=== PATIENT | male | born 1940 | race Caucasian/White ===

== ENCOUNTER 2017-01-28 06:28 | Day surgery (SDC) | payer MEDICARE, BC ==
[~2017-01-28 06:28] MED LIST: Metoclopramide 10 MG/2 ML SDV IV PRN; Sodium Chloride 0.9% 1,000 ML IV SCH; Sodium Chloride 0.9% 10 ML Syringe FLUSH PRN
[2017-01-28] MEDS ORDERED: Propofol 200 MG/20 ML SDV ONE ×2 (09:50)
--- NOTE | 2017-01-28 11:55 | OR ---
DATE OF OPERATION: 01/28/2017 PREOPERATIVE DIAGNOSIS: Colorectal cancer screening due. POSTOPERATIVE DIAGNOSIS: Severe pancolonic diverticulosis with tortuous nevus of the sigmoid colon. PROCEDURE: Colonoscopy. SURGEON: Anitha Gay DO ANESTHESIA: General per Natan Hahn CRNA. ESTIMATED BLOOD LOSS: Less than 10 mL. DESCRIPTION OF PROCEDURE: After informed consent was obtained, the patient was taken to the endoscopy suite, and placed in the left lateral decubitus position with all pressure points, bony prominences, and neurovascular bundles padded appropriately with no undue tension. The Department of Anesthesia initiated cardiopulmonary monitoring and performed sedation. A digital rectal exam was performed which was within normal limits. Then, a well lubricated Olympus colonoscope was inserted into the anus and advanced through the rectum, sigmoid colon, descending colon, splenic flexure, transverse colon, hepatic flexure, ascending colon, and cecum. The prep was excellent allowing for complete visualization of all mucosal surfaces. The sigmoid colon was tortuous and had an extreme number of diverticula present without any of those being impacted, inflamed, or bleeding. The remainder of the colon also contained a lesser number of diverticula, none of which were impacted, bleeding, or inflamed. The scope was slowly withdrawn from the cecum and all surface mucosal anatomy was again reviewed without any abnormalities being identified other than the aforementioned. The scope was straightened, as much as air possible was evacuated, and the scope was removed. The patient tolerated the procedure well, and was taken to the postanesthesia care unit in stable condition. HC/MODL /[id number]
[2017-01-28 12:16] VITALS: BP 180/62
== END 2017-01-28 12:00 | disposition home or self-care (01) ==
LOC: LB.SDS 06:28
PROVIDERS: ATTEND Surgery
DX: Z12.11 Encounter for screening for malignant neoplasm of colon (principal); K57.30 Diverticulosis of large intestine without perforation or abscess without bleeding; Q43.8 Other specified congenital malformations of intestine; Z79.82 Long term (current) use of aspirin; Z79.899 Other long term (current) drug therapy
CPT/HCPCS: G0121; J2704

== ENCOUNTER 2020-02-10 12:07 | Observation (INO) | payer OTHER, MEDICARE ==
[2020-02-10] MEDS: HYDROmorphone 2 MG/ML Syringe IVPUSH PRN ×2 (13:40→17:24)
[2020-02-10] MEDS ORDERED: HYDROmorphone 2 MG/ML SDV ONE ×2 (13:45→17:21)
[2020-02-10] MEDS ORDERED: Acetaminophen 325 MG Tab PO PRN (14:29)
[2020-02-10] MEDS ORDERED: Ondansetron 4 MG Tab.DIS PO PRN (14:30)
--- NOTE | 2020-02-10 14:35 | EDM.PDOC ---
ED HPI GENERAL MEDICAL PROBLEM - General Chief Complaint: General Stated Complaint: FALL Time Seen by Provider: 02/10/20 12:30 Source of Information: Reports: Patient History Limitations: Reports: Altered Mental Status - History of Present Illness INITIAL COMMENTS - FREE TEXT/NARRATIVE: Body presents status post fall. This was unwitnessed. Apparently he was down for quite a while. He is brought in unremarkably by EMS. He does not recall hitting his head, and actually is struggling to figure out the last thing that he truly remembers. He denies any nausea. He does have some rib pain of his left anterior wall inferiorly. He denies any shortness of breath. Treatments [employer]CHITECT: Reports: Cervical Collar, EKG Left Thoracic Pain Score (Numeric/FACES): 3 - Related Data Allergies Allergy/AdvReac Type Severity Reaction Status Date / Time No Known Allergies Allergy Verified 11/12/16 10:01 Home Meds: Home Meds Aspirin [Ecotrin] 81 mg PO DAILY 08/14/14 [History] Insulin Glarg,Human.Rec.Analog [LantUS Solostar] 10 unit SUBCUT DAILY 08/14/14 [ History] Lisinopril 10 mg PO DAILY 08/14/14 [History] Magnesium Oxide 250 mg PO DAILY 08/14/14 [History] Metoprolol Succinate [Toprol XL] 25 mg PO DAILY 08/14/14 [History] Pantoprazole [Protonix] 40 mg PO DAILY 08/14/14 [History] Simvastatin [Zocor] 40 mg PO DAILY 08/14/14 [History] SitaGLIPtin [Januvia] 50 mg PO DAILY 08/14/14 [History] Past Medical History HEENT History: Reports: Impaired Vision Gastrointestinal History: Reports: GERD Musculoskeletal History: Reports: Fracture Endocrine/Metabolic History: Reports: Diabetes, Type II Dermatologic History: Reports: Urticaria - Past Surgical History GI Surgical History: Reports: Hernia Repair/Other, Other (See Below) Social & Family History - Family History Family Medical History: Noncontributory - Caffeine Use Caffeine Use: Reports: Coffee, Soda ED ROS GENERAL - Review of Systems Review Of Systems: Comprehensive ROS is negative, except as noted in HPI. ED EXAM, GENERAL - Physical Exam Exam: See Below Exam Limited By: No Limitations General Appearance: Alert, WD/WN, No Apparent Distress Eye Exam: Bilateral Eye: EOMI, PERRL Ears: Normal External Exam, Hearing Grossly Normal Nose: Normal Inspection, No Blood Throat/Mouth: Normal Inspection, Normal Voice, No Airway Compromise Head: Atraumatic, Normocephalic Neck: Normal Inspection, Non-Tender, Full Range of Motion. No: Tender Midline Respiratory/Chest: No Respiratory Distress, Lungs Clear, Splinting (Slightly with palpation revealing no significant rib deformity or crepitus), Other ( Ultrasound reveals no evidence of pneumothorax) Cardiovascular: Regular Rate, Rhythm, No Gallop, No Murmur, No Rub, Other ( Ultrasound reveals no evidence of pericardial effusion) GI/Abdominal: Normal Bowel Sounds, Soft, Non-Tender, Pelvis Stable Back Exam: Normal Inspection. No: CVA Tenderness (R), CVA Tenderness (L), Muscle Spasm, Paraspinal Tenderness, Vertebral Tenderness Extremities: Normal Range of Motion, Non-Tender, Normal Capillary Refill Neurological: Alert, Oriented, CN II-XII Intact, Normal Cognition, No Motor/ Sensory Deficits, Other (Anterograde memory is definitely impaired, otherwise rational thought process) Psychiatric: Normal Affect, Normal Mood Skin Exam: Warm, Dry, Intact Course - Vital Signs Last Recorded V/S: Last Vital Signs Temp 98.3 F 02/10/20 13:51 Pulse 69 02/10/20 13:51 Resp 26 H 02/10/20 13:51 BP 214/82 H 02/10/20 13:51 Pulse Ox 94 L 02/10/20 13:51 - Orders/Labs/Meds Orders: Active Orders 24 hr Category Date Time Status Admission Status [Patient Status] [ADT] Routine ADT 02/10/20 14:18 Active Vital Signs [RC] PER UNIT ROUTINE Care 02/10/20 14:28 Ordered Regular Diet [DIET] Diet 02/10/20 Dinner Ordered Cervical Spine wo Cont [CT] Stat Exams 02/10/20 12:45 Taken Chest 1V Frontal [CR] Stat Exams 02/10/20 12:45 Taken Head wo Cont [CT] Stat Exams 02/10/20 12:45 Taken B-TYPE NATRIURETIC PEPTIDE,BNP [CHEM] Stat Lab B-TYPE NATRIURETIC PEPTIDE,BNP [CHEM] Stat Lab 02/10/20 14:03 Ordered CBC WITH AUTO DIFF [HEME] Stat Lab COMPREHENSIVE METABOLIC PN,CMP [CHEM] Stat Lab COMPREHENSIVE METABOLIC PN,CMP [CHEM] Stat Lab 02/10/20 14:03 Ordered TROPONIN I [CHEM] Stat Lab TROPONIN I [CHEM] Stat Lab 02/10/20 14:03 Ordered Acetaminophen [Tylenol] Med 02/10/20 14:29 Ordered 1,000 mg PO Q6H PRN HYDROmorphone [Dilaudid] Med See Dose Instructions IVPUSH Q2H PRN HYDROmorphone [Dilaudid] Med 02/10/20 13:39 Active See Dose Instructions IVPUSH Q2H PRN Ondansetron [Zofran ODT] Med 02/10/20 14:30 Ordered 4 mg PO Q6H PRN Medication Orders Hydromorphone HCl (Dilaudid) 0 mg IVPUSH Q2H PRN PRN Reason: Pain Last Admin: 02/10/20 13:40 Dose: 1 mg Labs: Laboratory Tests 02/10/20 Range/Units 14:20 WBC 10.9 D (4.0-11.0) K/uL RBC 4.06 L (4.50-6.50) M/uL Hgb 13.0 (13.0-18.0) g/dL Hct 37.9 L (40.0-54.0) % MCV 93 (76-96) fL MCH 32.0 (27.0-32.0) pg MCHC 34.3 (31.0-35.0) g/dL RDW 12.3 (11.0-16.0) % Plt Count 206 (150-400) K/uL MPV 9.2 (6.0-10.0) fL Neut % (Auto) 82.4 H (45.0-70.0) % Lymph % (Auto) 9.6 L (20.0-40.0) % [place] % (Auto) 7.5 (3.0-10.0) % Eos % (Auto) 0.4 L (1.0-5.0) % Baso % (Auto) 0.1 (0.0-0.5) % Neut # (Auto) 9.02 H (2.00-7.50) K/uL Lymph # (Auto) 1.05 L (1.50-4.00) K/uL [place] # (Auto) 0.82 H (0.20-0.80) K/uL Eos # (Auto) 0.04 (0.04-0.40) K/uL Baso # (Auto) 0.01 L (0.02-0.10) K/uL Meds: Medications Generic Name Dose Route Start Last Admin Trade Name Freq PRN Reason Stop Dose Admin Hydromorphone HCl 0 mg 02/10/20 13:39 02/10/20 13:40 Dilaudid IVPUSH 1 mg Q2H PRN Administration Pain Discontinued Medications Generic Name Dose Route Start Last Admin Trade Name Freq PRN Reason Stop Dose Admin Hydromorphone HCl Confirm 02/10/20 13:45 Dilaudid Administered 02/10/20 13:46 Dose 2 mg .ROUTE .STK-MED ONE Departure - Departure Time of Disposition: 14:00 Disposition: Refer to Observation Clinical Impression: Concussion syndrome - Discharge Information Referrals: PCP,None [Primary Care Provider] - Sepsis Event Note - Evaluation Sepsis Screening Result: No Definite Risk - Focused Exam Vital Signs: Vital Signs Temp Pulse Resp BP Pulse Ox 02/10/20 13:51 98.3 F 69 26 H 214/82 H 94 L 02/10/20 13:14 97.7 F 77 23 H 211/94 H 93 L Date Exam was Performed: 02/10/20 Time Exam was Performed: 14:30 - My Orders Last 24 Hours: My Active Orders 02/10/20 12:45 Cervical Spine wo Cont [CT] Stat Chest 1V Frontal [CR] Stat Head wo Cont [CT] Stat 02/10/20 13:39 HYDROmorphone [Dilaudid] See Dose Instructions IVPUSH Q2H PRN 02/10/20 14:03 B-TYPE NATRIURETIC PEPTIDE,BNP [CHEM] Stat COMPREHENSIVE METABOLIC PN,CMP [CHEM] Stat TROPONIN I [CHEM] Stat 02/10/20 14:18 Admission Status [Patient Status] [ADT] Routine B-TYPE NATRIURETIC PEPTIDE,BNP [CHEM] Stat CBC WITH AUTO DIFF [HEME] Stat COMPREHENSIVE METABOLIC PN,CMP [CHEM] Stat TROPONIN I [CHEM] Stat HYDROmorphone [Dilaudid] See Dose Instructions IVPUSH Q2H PRN 02/10/20 14:28 Vital Signs [RC] PER UNIT ROUTINE 02/10/20 14:29 Acetaminophen [Tylenol] 1,000 mg PO Q6H PRN 02/10/20 14:30 Ondansetron [Zofran ODT] 4 mg PO Q6H PRN 02/10/20 Dinner Regular Diet [DIET] - Assessment/Plan Last 24 Hours: My Active Orders 02/10/20 12:45 Cervical Spine wo Cont [CT] Stat Chest 1V Frontal [CR] Stat Head wo Cont [CT] Stat 02/10/20 13:39 HYDROmorphone [Dilaudid] See Dose Instructions IVPUSH Q2H PRN 02/10/20 14:03 B-TYPE NATRIURETIC PEPTIDE,BNP [CHEM] Stat COMPREHENSIVE METABOLIC PN,CMP [CHEM] Stat TROPONIN I [CHEM] Stat 02/10/20 14:18 Admission Status [Patient Status] [ADT] Routine B-TYPE NATRIURETIC PEPTIDE,BNP [CHEM] Stat CBC WITH AUTO DIFF [HEME] Stat COMPREHENSIVE METABOLIC PN,CMP [CHEM] Stat TROPONIN I [CHEM] Stat HYDROmorphone [Dilaudid] See Dose Instructions IVPUSH Q2H PRN 02/10/20 14:28 Vital Signs [RC] PER UNIT ROUTINE 02/10/20 14:29 Acetaminophen [Tylenol] 1,000 mg PO Q6H PRN 02/10/20 14:30 Ondansetron [Zofran ODT] 4 mg PO Q6H PRN 02/10/20 Dinner Regular Diet [DIET]
--- NOTE | 2020-02-10 15:17 | CT ---
DATE OF SERVICE: 02/10/2020 CLINICAL DATA: Fall Unenhanced brain CT: Multislice axial acquisition was performed. No priors. There is diffuse cerebral atrophy. There are periventricular lucencies bilaterally consistent with small vessel ischemic change. No masses or mass effect. No intracranial hemorrhage. No evidence of acute or subacute infarct. No fractures. Impression: No acute intracranial abnormalities. MTDD
--- NOTE | 2020-02-10 15:23 | CRLCT ---
DATE OF SERVICE: 02/10/2020 CLINICAL DATA: Fall Cervical spine CT: Multislice axial acquisition was performed. Axial images and sagittal and coronal reformations are reviewed. Motion artifact degrades image quality. The patient is status post C6-7 discectomy and fusion. There is slight anterolisthesis of C7 on T1 and T1 and T2. No acute fracture or dislocation. No focal lytic or blastic bone lesions. There is degenerative disc disease at multiple levels. There is facet joint hypertrophy throughout the cervical spine. There is bony encroachment of the neural foramen bilaterally at multiple levels. There are degenerative changes involving the atlantoaxial articulation. The soft tissues are unremarkable. There are fibrotic changes in the right lung apex through the visualized lung apices are otherwise clear. Impression: No acute abnormalities. Other findings as discussed above. MTDD
--- NOTE | 2020-02-10 15:28 | CR ---
DATE OF SERVICE: 02/10/20 CLINICAL DATA: Fall. AP PORTABLE CHEST: Comparison made to a prior exam dated 11/12/16. The patient has taken a poor inspiration. The heart size is within normal limits. The aorta is ectatic. There is chronic eventration of the right hemidiaphragm. There is prominence of the proximal pulmonary arteries bilaterally suggesting the possibility of pulmonary hypertension. There is increased density in the left infrahilar region consistent with infiltrate or atelectasis. Pneumonia should be considered. No pleural effusions. No pneumothorax. There are healed rib fractures on the right and left. [id number] MTDD
[2020-02-10] MEDS ORDERED: Simvastatin 40 MG Tab PO SCH (20:00)
[2020-02-11] MEDS ORDERED: Pantoprazole 40 MG Tab.CR PO SCH (07:00)
[2020-02-11] MEDS ORDERED: SitaGLIPtin 25 MG Tab PO SCH (08:00)
[2020-02-11] MEDS ORDERED: Aspirin 81 MG Tab.EC PO SCH (08:00)
[2020-02-11 08:40] VITALS: BP 136/47; PULSE 75
--- NOTE | 2020-02-11 10:31 | PCM.DCSUM1 ---
Discharge Summary - Hospital Course Free Text/Narrative:: Patient awake, alert and oriented. Is able to tell me what he had been doing prior to the fall (checking his mailbox) but is still unable to remember the fall itself. He slept well last night, states his chest hurts but not more than yesterday. Diagnosis: Stroke: No - Discharge Data Discharge Date: 02/11/20 Discharge Disposition: Home, Self-Care 01 Condition: Good - Referral to Home Health Primary Care Physician: PCP None - Patient Instructions Diet: Usual Diet as Tolerated Activity: Rest and Relax Today Driving: Do Not Drive Showering/Bathing: May Shower Notify Provider of: Increased Pain, Nausea and/or Vomiting - Discharge Plan *PRESCRIPTION DRUG MONITORING PROGRAM REVIEWED*: No Home Medications: Home Meds Aspirin [Ecotrin] 81 mg PO DAILY 08/14/14 [History] Insulin Glarg,Human.Rec.Analog [LantUS Solostar] 10 unit SUBCUT DAILY 08/14/14 [ History] Lisinopril 40 mg PO DAILY 08/14/14 [History] Magnesium Oxide 250 mg PO DAILY 08/14/14 [History] Metoprolol Succinate [Toprol XL] 25 mg PO DAILY 08/14/14 [History] Pantoprazole [Protonix] 40 mg PO DAILY 08/14/14 [History] Simvastatin [Zocor] 40 mg PO DAILY 08/14/14 [History] SitaGLIPtin [Januvia] 50 mg PO DAILY 08/14/14 [History] Patient Handouts: Fall Prevention in the Home, Adult, [id number], Post- Concussion Syndrome, [id number], Type 2 Diabetes Mellitus, Self Care, Adult, [id number] Forms: ED Department Discharge Referrals: PCP,None [Primary Care Provider] - - Discharge Summary/Plan Comment DC Time >30 min.: No - General Info Date of Service: 02/11/20 Functional Status: Reports: Pain Controlled - Review of Systems General: Reports: No Symptoms HEENT: Reports: No Symptoms Pulmonary: Reports: No Symptoms Cardiovascular: Reports: Chest Pain Gastrointestinal: Reports: No Symptoms Genitourinary: Reports: No Symptoms Musculoskeletal: Reports: No Symptoms Skin: Reports: No Symptoms Neurological: Reports: No Symptoms - Patient Data Vitals - Most Recent: Last Vital Signs Temp 37.2 C 02/11/20 08:39 Pulse 75 02/11/20 08:39 Resp 16 02/11/20 08:39 BP 136/47 L 02/11/20 08:39 Pulse Ox 95 02/11/20 08:39 Weight - Most Recent: 82.5 kg I&O - Last 24 hours: Intake & Output 02/10/20 02/11/20 02/11/20 22:59 06:59 14:59 Output Total 300 Balance -300 Lab Results - Last 24 hrs: Laboratory Results - last 24 hr 02/10/20 02/10/20 02/10/20 Range/Units 14:03 14:03 14:20 WBC 10.9 D (4.0-11.0) K/uL RBC 4.06 L (4.50-6.50) M/uL Hgb 13.0 (13.0-18.0) g/dL Hct 37.9 L (40.0-54.0) % MCV 93 (76-96) fL MCH 32.0 (27.0-32.0) pg MCHC 34.3 (31.0-35.0) g/dL RDW 12.3 (11.0-16.0) % Plt Count 206 (150-400) K/uL MPV 9.2 (6.0-10.0) fL Neut % (Auto) 82.4 H (45.0-70.0) % Lymph % (Auto) 9.6 L (20.0-40.0) % [place] % (Auto) 7.5 (3.0-10.0) % Eos % (Auto) 0.4 L (1.0-5.0) % Baso % (Auto) 0.1 (0.0-0.5) % Neut # (Auto) 9.02 H (2.00-7.50) K/uL Lymph # (Auto) 1.05 L (1.50-4.00) K/uL Tift # (Auto) 0.82 H (0.20-0.80) K/uL Eos # (Auto) 0.04 (0.04-0.40) K/uL Baso # (Auto) 0.01 L (0.02-0.10) K/uL Sodium 138 (136-145) mmol/L Potassium 4.0 (3.5-5.1) mmol/L Chloride 100 (98-107) mmol/L Carbon Dioxide 30.4 (21.0-32.0) mmol/L Anion Gap 11.6 (5.0-15.0) mmol/L BUN 7 L D (8-26) mg/dL Creatinine 0.85 (0.70-1.30) mg/dL Est Cr Clr Drug Dosing TNP Estimated GFR (MDRD) > 60 (>60) MLS/MIN BUN/Creatinine Ratio 8.2 (6-25) Glucose 165 H D (74-100) mg/dL POC Glucose (74-110) mg/dL Calcium 8.3 L (8.5-10.1) mg/dL Total Bilirubin 0.4 D (0.0-1.0) mg/dL AST 54 H (15-37) U/L ALT 62 (12-78) U/L Alkaline Phosphatase 74 (46-116) U/L Troponin I 0.018 (0.000-0.060) ng/mL B-Natriuretic Peptide 260 (0-450) pg/mL Total Protein 7.0 (6.4-8.2) g/dL Albumin 3.9 (3.4-5.0) g/dL Globulin 3.1 (2.2-4.2) g/dL Albumin/Globulin Ratio 1.3 (0.8-2.0) 04/03/20 Range/Units 18:26 WBC (4.0-11.0) K/uL RBC (4.50-6.50) M/uL Hgb (13.0-18.0) g/dL Hct (40.0-54.0) % MCV (76-96) fL MCH (27.0-32.0) pg MCHC (31.0-35.0) g/dL RDW (11.0-16.0) % Plt Count (150-400) K/uL MPV (6.0-10.0) fL Neut % (Auto) (45.0-70.0) % Lymph % (Auto) (20.0-40.0) % Tift % (Auto) (3.0-10.0) % Eos % (Auto) (1.0-5.0) % Baso % (Auto) (0.0-0.5) % Neut # (Auto) (2.00-7.50) K/uL Lymph # (Auto) (1.50-4.00) K/uL Tift # (Auto) (0.20-0.80) K/uL Eos # (Auto) (0.04-0.40) K/uL Baso # (Auto) (0.02-0.10) K/uL Sodium (136-145) mmol/L Potassium (3.5-5.1) mmol/L Chloride (98-107) mmol/L Carbon Dioxide (21.0-32.0) mmol/L Anion Gap (5.0-15.0) mmol/L BUN (8-26) mg/dL Creatinine (0.70-1.30) mg/dL Est Cr Clr Drug Dosing Estimated GFR (MDRD) (>60) MLS/MIN BUN/Creatinine Ratio (6-25) Glucose (74-100) mg/dL POC Glucose 184 H (74-110) mg/dL Calcium (8.5-10.1) mg/dL Total Bilirubin (0.0-1.0) mg/dL AST (15-37) U/L ALT (12-78) U/L Alkaline Phosphatase (46-116) U/L Troponin I (0.000-0.060) ng/mL B-Natriuretic Peptide (0-450) pg/mL Total Protein (6.4-8.2) g/dL Albumin (3.4-5.0) g/dL Globulin (2.2-4.2) g/dL Albumin/Globulin Ratio (0.8-2.0) Med Orders - Current: Current Medications Acetaminophen (Tylenol) 1,000 mg PO Q6H PRN PRN Reason: Pain Aspirin (Halfprin) 81 mg PO DAILY [facility] Last Admin: 02/11/20 07:46 Dose: 81 mg Hydromorphone HCl (Dilaudid) 0 mg IVPUSH Q2H PRN PRN Reason: Pain Last Admin: 02/10/20 17:24 Dose: 0.5 mg Lisinopril (Prinivil) 40 mg PO DAILY [facility] Last Admin: 02/11/20 07:46 Dose: 40 mg Ondansetron HCl (Zofran Odt) 4 mg PO Q6H PRN PRN Reason: Nausea/Vomiting Pantoprazole Sodium (Protonix) 40 mg PO ACBREAKFAST [facility] Last Admin: 02/11/20 07:39 Dose: 40 mg Simvastatin (Zocor) 40 mg PO BEDTIME [facility] Last Admin: 02/10/20 20:26 Dose: 40 mg Sitagliptin Phosphate (Januvia) 50 mg PO DAILY [facility] Last Admin: 02/11/20 08:56 Dose: Not Given Discontinued Medications Hydromorphone HCl (Dilaudid) Confirm Administered Dose 2 mg .ROUTE .STK-MED ONE Stop: 02/10/20 13:46 Last Admin: 02/10/20 16:00 Dose: Not Given Hydromorphone HCl (Dilaudid) Confirm Administered Dose 2 mg .ROUTE .STK-MED ONE Stop: 02/10/20 17:22 Last Admin: 02/10/20 17:26 Dose: Not Given - Exam General: Reports: Alert, Oriented HEENT: Reports: Pupils Equal, Pupils Reactive, EOMI, Mucous Membr. Moist/[place] Neck: Reports: Supple Lungs: Reports: Clear to Auscultation, Normal Respiratory Effort Skin: Reports: Warm, Dry Neurological: Reports: No New Focal Deficit Psy/Mental Status: Reports: Alert, Normal Affect, Normal Mood
== END 2020-02-11 11:28 | disposition home or self-care (01) ==
LOC: LB.ED 12:07 → LB.MS 14:27
PROVIDERS: ADMIT Family Medicine; ATTEND Family Medicine
DX: F07.81 Postconcussional syndrome (principal); E11.9 Type 2 diabetes mellitus without complications; K21.9 Gastro-esophageal reflux disease without esophagitis; Z79.82 Long term (current) use of aspirin; Z79.4 Long term (current) use of insulin; Z79.899 Other long term (current) drug therapy
CPT/HCPCS: 36415; 70450; 71045; 72125; 80053; 82962; 83880; 84484; 85025; 96374; 99217; 99218; 99285-25; A0425; A0429; A9270-GY; J1170